=== PATIENT | male | born 1955 | race Caucasian/White ===

== ENCOUNTER → 2021-11-12 09:36 | Outpatient (CLI) | payer OTHER, SELFPAY ==
[2021-11-12 19:19] LABS: SARS-CoV-2 RNA PCR Negative (Negative)
== END ==
PROVIDERS: PCP Family Medicine; Visit Provider Internal Medicine Gastroenterology
DX: Z01.812 Encounter for preprocedural laboratory examination (principal); Z20.822 Contact with and (suspected) exposure to COVID-19
CPT/HCPCS: C9803; U0003; U0005

== ENCOUNTER 2021-11-14 01:25 | Day surgery (SDC) | payer OTHER, SELFPAY ==
[2021-11-01 14:04] VITALS: BMI 25.4
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
[2021-11-14 07:14] VITALS: BP 132/86; PULSE 79; RESP 17; TEMP 36.6; O2SAT 97; BMI 24.8
[2021-11-14] MEDS: LACTATED RINGERS 1,000 ML 150 ML IV CONT (07:27)
[2021-11-14] MEDS: GENTAMICIN 80MG/SOD CHL 50 ML 80 MG/50 ML BAG 100 MG IVPB (07:28)
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
[2021-11-14] MEDS: AMPICILLIN 2 GM/NS 100 ML 2 GM/100 ML BAG IVPB (07:54)
[2021-11-14 08:15] VITALS: BP 103/66; PULSE 71; RESP 27; O2SAT 98
[2021-11-14 08:25] VITALS: BP 109/73; PULSE 67; RESP 21; O2SAT 98
[2021-11-14 08:35] VITALS: BP 112/75; PULSE 61; RESP 19; O2SAT 100
== END 2021-11-14 08:41 | disposition home or self-care (01) ==
PROVIDERS: PCP Family Medicine; Visit Provider Internal Medicine Gastroenterology
PROC: 0DJD8ZZ Inspection of Lower Intestinal Tract, Via Natural or Artificial Opening Endoscopic (ICD-10-PCS; CPT 45378; principal; 2021-11-14 08:00)
DX: Z12.11 Encounter for screening for malignant neoplasm of colon (principal); D12.2 Benign neoplasm of ascending colon; D12.4 Benign neoplasm of descending colon; D12.5 Benign neoplasm of sigmoid colon; K64.8 Other hemorrhoids; K62.1 Rectal polyp; M54.2 Cervicalgia; G89.29 Other chronic pain; F17.290 Nicotine dependence, other tobacco product, uncomplicated
CPT/HCPCS: 45385; 88305; C9803; J0290; J1580; J2704; J7120; U0003; U0005

== ENCOUNTER 2023-06-06 14:14 | Outpatient (CLI) | payer OTHER, SELFPAY ==
[2023-06-06 14:36] LABS: Basophils Absolute Auto 0.1 K/mm3 (0.0-0.1); Basophils Percent Auto 0.9 % (0.2-1.2); Eosinophils Absolute Auto 0.2 K/mm3 (0-0.3); Eosinophils Percent Auto 2.5 % (0-4.4); Hematocrit 41.4 % (42.0-52.0); Hemoglobin 13.8 g/dL (14.0-18.0); Immature Granulocyte Absolute 0.04 K/mm3 (0.00-0.031); Immature Granulocyte Percent A 0.6 % (0-0.5); Lymphocytes Absolute Auto 1.83 K/mm3 (0.9-3.2); Lymphocytes Percent Auto 27.2 % (18.3-44.2); Mean Corpuscular HGB Conc 33.3 g/dl (32-36); Mean Platelet Volume 9.2 fl (7.4-10.4); Monocytes Absolute Auto 0.7 K/mm3 (0.1-0.6); Monocytes Percent Auto 9.8 % (2.6-8.5); Platelet Count Result 284 k/mm3 (150-375); Red Blood Count 4.45 M/mm3 (4.6-6.20); White Blood Count 6.7 K/mm3 (4.5-10.0)
[2023-06-06 14:51] LABS: Alanine Aminotransferase 24 U/L (6-50); Alkaline Phosphatase 63 U/L (38-126); Anion Gap 8 mmol/L (8-16); Aspartate Amino Transferase 28 U/L (17-59); Bilirubin,Total 0.3 mg/dL (0.2-1.3); Blood Urea Nitrogen 17 mg/dL (9-20); Calcium 8.6 mg/dL (8.4-10.2); Carbon Dioxide 25 mmol/L (22-30); Chloride 106 mmol/L (98-107); Estimated Glomerular Filt Rate > 60; Glucose 112 mg/dL (65-110); Sodium 139 mmol/L (137-145)
== END 2023-06-06 14:15 | disposition home or self-care (01) ==
PROVIDERS: PCP Family Medicine; Visit Provider Physician Assistant
DX: M54.9 Dorsalgia, unspecified (principal); R10.31 Right lower quadrant pain
CPT/HCPCS: 36415; 80053; 85025

== ENCOUNTER → 2023-06-13 10:17 | Outpatient (CLI) | payer OTHER, SELFPAY ==
--- NOTE | ~2023-06-13 | CT_ITS ---
EXAMINATION: CT abdomen pelvis wo con DATE: 06/13/2023 10:37 INDICATION: Abdominal pain, back pain, nausea TECHNIQUE: Computed tomography (CT) of the abdomen and pelvis was performed without intravenous contr ast. Automated exposure control and iterative reconstruction technique were employed. Exam dose: 622 .50 mGy-cm total exam DLP. COMPARISON: None. FINDINGS: There is prominent discoid atelectasis or scarring in the posteromedial right lung base and to a lesser extent the base of the lingula and posterior left lower lobe. Normal heart size. No pericardial or pleural effusion. Nonspecific approximately 5 mm hypoattenuating lesion of the anterior aspect of the right hepatic lob e lateral to the gallbladder, possibly a small cyst, but too small to definitively characterize. The liver, gallbladder, bile ducts, spleen, pancreas, pancreatic duct, and adrenal glands and kidneys are otherwise appear normal on this limited noncontrast examination. No urinary tract calculus or hydroureteronephrosis. There is prominent diffuse thickening of the urinary bladder wall, likely secondary to very prominent prostatomegaly. There are multiple prostate calcifications. Bilateral small fat-containing inguinal hernias and fat-containing umbilical hernia. Normal caliber of the abdominal aorta. No intraperitoneal or retroperitoneal or pelvic mass lesion or adenopathy or ascites. Normal appendix. No bowel obstruction or intraperitoneal free air. Degenerative changes of the thoracic and lumbar spine; no suspicious osteolytic or osteoblastic lesio ns are noted. IMPRESSION: Posterolaterally Reviewed, dictated and finalized at [facility]. Reviewed, dictated and finalized at [facility]. IMPRESSION: Posterolaterally
== END ==
PROVIDERS: PCP Physician Assistant; Visit Provider Physician Assistant
DX: R10.9 Unspecified abdominal pain (principal)
CPT/HCPCS: 74176

== ENCOUNTER 2023-07-11 07:29 | Outpatient (CLI) | payer OTHER, SELFPAY ==
--- NOTE | ~2023-07-11 | MR_ITS ---
EXAMINATION: MR abdomen wo/w con DATE: 07/11/2023 08:54 INDICATION: Liver lesion on prior CT TECHNIQUE: Magnetic resonance imaging (MRI) of the abdomen was performed without and with 15 mL Multi angelina intravenous contrast. Sequences included coronal T2-weighted SS-FSE, coronal and axial FS 2D-F IESTA, axial STIR FSE, axial T2-weighted SS-FSE, axial T2-weighted FS SS-FSE, axial diffusion-weighte d SE, axial dual-echo T1-weighted FSPGR, and axial and coronal T1-weighted LAVA. Postcontrast axial T 1-weighted LAVA images were obtained in a time course. Postcontrast coronal T1-weighted LAVA images w ere obtained. COMPARISON: CT dated 06/13/2023 FINDINGS: Arch size is normal. No pericardial or pleural effusion. There are multiple tiny T2 hyperintense none nhancing cysts scattered through the liver, the largest measuring 9 mm in in segment IVb correspondin g to the lesion identified on prior CT. 9 mm hemangioma at the caudal tip of the right hepatic lobe w hich demonstrates characteristic pattern of peripheral discontiguous puddling of contrast isointense to the aorta which progressively fills in on delayed imaging. Gallbladder, pancreas, spleen, bilatera l adrenal glands and kidneys are normal. Visualized portion of the bowels are unremarkable. No pathol ogically enlarged abdominal lymphadenopathy. Small fat-containing umbilical hernia. IMPRESSION: 1. 9 mm hemangioma at the caudal tip of the liver and multiple subcentimeter hepatic cysts which incl ude the lesion identified on prior CT. Reviewed, dictated and finalized at location [facility]. IMPRESSION: 1. 9 mm hemangioma at the caudal tip of the liver and multiple subcentimeter he patic cysts which include the lesion identified on prior CT.
== END 2023-07-11 07:30 | disposition home or self-care (01) ==
PROVIDERS: PCP Physician Assistant; Visit Provider Physician Assistant
DX: K76.9 Liver disease, unspecified (principal)
CPT/HCPCS: 74183; A9577

== ENCOUNTER 2023-08-01 08:24 | Outpatient (CLI) | payer OTHER, SELFPAY ==
[2023-08-01 09:40] LABS: Hematocrit 45.7 % (42.0-52.0); Hemoglobin 15.5 g/dL (14.0-18.0); Mean Corpuscular HGB Conc 33.9 g/dl (32-36); Mean Corpuscular Hemoglobin 31.5 pg (26-34); Mean Corpuscular Volume 92.9 fl (80-100); Mean Platelet Volume 9.3 fl (7.4-10.4); Platelet Count Result 296 k/mm3 (150-375); Red Blood Count 4.92 M/mm3 (4.6-6.20); Red Cell Distribution Width 13.1 % (11.5-14.5); White Blood Count 5.7 K/mm3 (4.5-10.0)
[2023-08-01 09:50] LABS: Alanine Aminotransferase 23 U/L (6-50); Albumin Level 4.4 g/dL (3.5-5.1); Alkaline Phosphatase 63 U/L (38-126); Anion Gap 8 mmol/L (8-16); Aspartate Amino Transferase 26 U/L (17-59); Bilirubin,Total 0.6 mg/dL (0.2-1.3); Blood Urea Nitrogen 19 mg/dL (9-20); Calcium 8.8 mg/dL (8.4-10.2); Carbon Dioxide 24 mmol/L (22-30); Chloride 106 mmol/L (98-107); Cholesterol 147 mg/dL (0-200); Estimated Glomerular Filt Rate > 60; Glucose 94 mg/dL (65-110); HDL Direct 49 mg/dL; Potassium 4.2 mmol/L (3.4-5.0); Sodium 138 mmol/L (137-145); Triglycerides 66 mg/dL (<150)
[2023-08-01 10:01] LABS: LDL Cholesterol Direct 71 mg/dL
[2023-08-01 10:10] LABS: Appearance Urine Clear (Clear); Bacteria Urine None Seen /hpf; Bilirubin Urine Negative (Negative); Blood Urine Negative (Negative); Color Urine Yellow (Yellow); Glucose Urine UA Negative (Negative); Ketones Urine Negative (Negative); Leukocyte Esterase Ur Trace LEU/UL (NEGATIVE); Nitrate Urine Negative (Negative); Non Pathogenic Casts 0-2; Protein Urine Negative (Negative); RBC Urine 0-2 /hpf (0-2); Specific Grav Ur 1.013 (1.001-1.035); Squamous Epithelial Cell Urine None seen /hpf (Few); Urobilinogen Urine 0.2 mg/dL (<2.0); WBC Urine 0-5 /hpf (0-3); pH Urine 5.5 (5.0-9.0)
[2023-08-01 10:20] LABS: Prostate Specific Antigen 4.2 ng/mL (< OR = 4.0); Thyroid Stimulating Hormone 0.839 uIU/mL (0.465-4.680)
[2023-08-01 10:32] LABS: Add Urine Microscopic? YES
== END 2023-08-01 08:25 | disposition home or self-care (01) ==
LOC: ANHLAB 08:26
PROVIDERS: PCP Family Medicine; Visit Provider Family Medicine
DX: R97.20 Elevated prostate specific antigen [PSA] (principal); E78.5 Hyperlipidemia, unspecified; R53.83 Other fatigue
CPT/HCPCS: 36415; 80053; 80061; 81001; 84153; 84443; 85027

== ENCOUNTER 2023-09-30 11:57 | Emergency (ER) | payer OTHER, SELFPAY ==
[2023-09-30 12:09] VITALS: BP 129/79; PULSE 58; RESP 16; TEMP 36.6; O2SAT 99
--- NOTE | 2023-09-30 12:33 | PC.NURSE ---
1230 eye kit set up at bedside.
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
== END 2023-09-30 13:05 | disposition home or self-care (01) ==
PROVIDERS: Emergency Provider Nurse Practitioner; PCP Family Medicine
DX: S05.01XA Injury of conjunctiva and corneal abrasion without foreign body, right eye, initial encounter (principal); X58.XXXA Exposure to other specified factors, initial encounter; F12.90 Cannabis use, unspecified, uncomplicated
CPT/HCPCS: 99213; A9270; G0463

== ENCOUNTER → 2023-12-08 09:48 | Outpatient (REF) | payer OTHER, SELFPAY | LOC: ANHLAB 09:48 | PROVIDERS: PCP Family Medicine; Visit Provider Plastic Surgery | DX: D48.5 Neoplasm of uncertain behavior of skin (principal) | CPT/HCPCS: 88305 ==

== ENCOUNTER → 2023-12-23 09:09 | Outpatient (CLI) | payer OTHER, SELFPAY ==
--- NOTE | ~2023-12-23 | XR_ITS ---
XR hip RT 2V w AP pelvis DATE: 12/23/2023 09:34 INDICATION: Right hip pain TECHNIQUE: AP pelvis. AP and lateral views of right hip COMPARISON: 06/13/2023 CT abdomen pelvis FINDINGS: Mild right hip chondrocalcinosis. No fracture or dislocation, avascular necrosis or bone de struction of the right hip. Mild bilateral hip osteoarthritis. The pubic symphysis and sacroiliac pete nts are intact. No pelvic fracture or bone destruction is detected. 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 IMPRESSION: Mild right hip chondrocalcinosis Mild bilateral hip osteoarthritis Reviewed, dictated and finalized at location [facility]. [employer]
== END ==
PROVIDERS: PCP Physician Assistant; Visit Provider Physician Assistant
DX: M16.0 Bilateral primary osteoarthritis of hip (principal)
CPT/HCPCS: 73502